=== PATIENT | male | born 2000 | race Caucasian/White ===

== ENCOUNTER 2024-03-05 13:20 | Observation (INO) | payer BC, OTHER ==
--- NOTE | 2024-03-05 13:23 | ED ---
Abdominal Pain HPI - General Source: patient, RN notes reviewed Mode of arrival: ambulatory Limitations: no limitations - History of Present Illness MD Complaint: abdominal pain <Li Farah - Last Filed: 03/05/24 13:22> - General Source: RN notes reviewed <Jyoti Ortiz - Last Filed: 03/05/24 19:13> <Oksana Kunz - Last Filed: 03/05/24 20:19> - General Chief Complaint: Abdominal Pain Stated Complaint: abd pain Time Seen by Provider: 03/05/24 13:22 - History of Present Illness Initial Comments: Quick Note: This is a 24-year-old male who presents to the emergency department for abdominal pain. Pain is described as diffuse. States that it began last night. Last bowel movement was yesterday. Denies any nausea or vomiting. Pain is improved today compared with last night. (Li Farah) 24-year-old male with no significant past medical history presenting to the ER for chief complaint of abdominal pain x 1 day. Reports this pain began last night after he had stirfry for dinner. Reports he ran to the bathroom and had an episode of vomiting. He describes the pain as in the middle of his stomach and feels like "gas is expanding in his stomach". He reports he has not had any episodes of vomiting today however the pain worsened in severity to a 10 out of 10 before arriving at the ER. States since being in the ER, pain has decreased to about a 4. Denies any current nausea. Denies any previous abdominal surgeries. Last bowel movement was yesterday and was normal. Denies chest pain, shortness of breath, fever, chills (Jyoti Ortiz) - Related Data Home Medications Medication Instructions Recorded Confirmed No Known Home Medications 06/13/15 03/05/24 Allergies Allergy/AdvReac Type Severity Reaction Status Date / Time No Known Allergies Allergy Verified 03/05/24 16:04 Review of Systems ROS Other: All systems not noted in ROS Statement are negative. <Li Farah - Last Filed: 03/05/24 13:22> ROS Other: All systems not noted in ROS Statement are negative. <Jyoti Ortiz - Last Filed: 03/05/24 19:13> ROS Other: All systems not noted in ROS Statement are negative. <Oksana Kunz - Last Filed: 03/05/24 20:19> ROS Statement: Those systems with pertinent positive or pertinent negative responses have been documented in the HPI. Past Medical History Past Medical History: No Reported History History of Any Multi-Drug Resistant Organisms: None Reported Past Surgical History: No Surgical Hx Reported Past Psychological History: No Psychological Hx Reported Past Alcohol Use History: None Reported Past Drug Use History: None Reported <Li Farah - Last Filed: 03/05/24 13:22> General Exam <Li Farah - Last Filed: 03/05/24 13:22> General appearance: alert, in no apparent distress Head exam: Present: atraumatic, normocephalic, normal inspection Eye exam: Present: normal appearance, PERRL, EOMI. Absent: scleral icterus, conjunctival injection, periorbital swelling ENT exam: Present: normal exam, mucous membranes moist Neck exam: Present: normal inspection. Absent: tenderness, meningismus, lymphadenopathy Respiratory exam: Present: normal lung sounds bilaterally. Absent: respiratory distress, wheezes, rales, rhonchi, stridor Cardiovascular Exam: Present: regular rate, normal rhythm, normal heart sounds. Absent: systolic murmur, diastolic murmur, rubs, gallop, clicks GI/Abdominal exam: Present: soft, normal bowel sounds. Absent: distended, tenderness, guarding, rebound, rigid <Jyoti Ortiz - Last Filed: 03/05/24 19:13> - General Exam Comments Initial Comments: Visual Physical Exam Vital signs reviewed General: Well-appearing, nontoxic, no acute distress. Head: Normocephalic, atraumatic Eyes: PERRLA, EOMI ENT: Airway patent Chest: Nonlabored breathing Skin: No visual rash, normal skin tone Neuro: Alert and oriented 3 Musculoskeletal: No gross abnormalities (Li Farah) Course Vital Signs 03/05/24 03/05/24 13:47 19:47 Temperature 98.1 F 98.0 F Pulse Rate 64 82 Respiratory 16 18 Rate Blood Pressure 149/83 143/78 O2 Sat by Pulse 98 99 Oximetry Medical Decision Making <Li Farah - Last Filed: 03/05/24 13:22> - Lab Data Result diagrams: 03/05/24 15:55 03/05/24 15:55 <AngelJyoti - Last Filed: 03/05/24 19:13> - Lab Data Result diagrams: 03/05/24 15:55 03/05/24 15:55 <Oksana Kunz - Last Filed: 03/05/24 20:19> - Medical Decision Making I performed the QuickNote portion of this chart. Signed Li Farah PA-C. (Li Farah) Was pt. sent in by a medical professional or institution (TREY Roach, HEALTHCARE CONSULTING MANAGER, urgent care, hospital, or fci...) When possible be specific @ -[No] Did you speak to anyone other than the patient for history (EMS, parent, family, police, friend...)? What history was obtained from this source @ -[No] Did you review nursing and triage notes (agree or disagree)? Why? @ -[I reviewed and agree with nursing and triage notes] Were old charts reviewed (outside hosp., previous admission, EMS record, old EKG, old radiological studies, urgent care reports/EKG's, fci records)? Report findings @ -[No old charts were reviewed] Differential Diagnosis (chest pain, altered mental status, abdominal pain women, abdominal pain men, vaginal bleeding, weakness, fever, dyspnea, syncope, heada jimmie, dizziness, GI bleed, back pain, seizure, CVA, palpatations, mental health, musculoskeletal)? @ -Differential Abdominal Pain Men: Appendicitis, cholecystitis, diverticulosis, ischemic bowel, pancreatitis, hepatitis, UTI, gastroenteritis, AAA, incarcerated hernia, bowel obstruction, constipation, inflammatory bowel, hepatitis, peptic ulcer disease, splenic infarction, perforated viscus, testicular torsion, this is not meant to be an all-inclusive list EKG interpreted by me (3pts min.). @ -None X-rays interpreted by me (1pt min.). @ -[None done] CT interpreted by me (1pt min.). @ -CT of abdomen/pelvis pending at time of signout. U/S interpreted by me (1pt. min.). @ -[None done] What testing was considered but not performed or refused? (CT, X-rays, U/S, labs)? Why? @ -[None] What meds were considered but not given or refused? Why? @ -None Did you discuss the management of the patient with other professionals (professionals i.e. , PA, HEALTHCARE CONSULTING MANAGER, lab, RT, psych nurse, social sciences chair, automatic tire tester, teacher, staff submarine warfare officer, case repairer)? Give summary @ -[No] Was smoking cessation discussed for >3mins.? @ -[No] Was critical care preformed (if so, how long)? @ -[No] Were there social determinants of health that impacted care today? How? (Homelessness, low income, unemployed, alcoholism, drug addiction, transportation, low edu. Level, literacy, decrease access to med. care, custodial, rehab)? @ -[No] Was there de-escalation of care discussed even if they declined (Discuss DNR or withdrawal of care, Hospice)? DNR status @ -[No] What co-morbidities impacted this encounter? (DM, HTN, Smoking, COPD, CAD, Cancer, CVA, ARF, Chemo, Hep., AIDS, mental health diagnosis, sleep apnea, morbid obesity)? @ -[None] Was patient admitted / discharged? Hospital course, mention meds given and route, prescriptions, significant lab abnormalities, going to OR and other pertinent info. @ -Patient was seen and evaluated for abdominal pain x 1 day with 1 episode of vomiting. Patient is afebrile, no tachycardia. Physical examination is unremarkable, abdomen is nontender upon palpation. Patient is given 2 L of IV fluids. Lab work including CBC, CMP, lactic acid, lipase unremarkable for white blood cell count of 19.5 with left shift, as well as CO2 of 17. Urine remarkable for 3+ ketones and trace protein. CT of abdomen/pelvis performed due to white count of 19.5 and pending at time of signout to Oksana Kunz PA-C at 7:10 PM. (Jyoti Ortiz) - Lab Data Lab Results 03/05/24 03/05/24 03/05/24 Range/Units 15:55 15:55 15:55 WBC 19.5 H (3.8-10.6) k/uL RBC 5.79 (4.30-5.90) m/uL Hgb 17.2 (13.0-17.5) gm/dL Hct 51.4 (39.0-53.0) % MCV 88.9 (80.0-100.0) fL MCH 29.7 (25.0-35.0) pg MCHC 33.4 (31.0-37.0) g/dL RDW 12.6 (11.5-15.5) % Plt Count 278 (150-450) k/uL MPV 9.4 Neutrophils % 74 % Lymphocytes % 17 % Monocytes % 5 % Eosinophils % 1 % Basophils % 1 % Neutrophils # 14.5 H (1.3-7.7) k/uL Lymphocytes # 3.4 (1.0-4.8) k/uL Monocytes # 1.0 (0-1.0) k/uL Eosinophils # 0.2 (0-0.7) k/uL Basophils # 0.1 (0-0.2) k/uL Sodium 141 (137-145) mmol/L Potassium 3.8 (3.5-5.1) mmol/L Chloride 109 H (98-107) mmol/L Carbon Dioxide 17 L (22-30) mmol/L Anion Gap 15 mmol/L BUN 10 (9-20) mg/dL Creatinine 0.99 (0.66-1.25) mg/dL Est GFR (CKD-EPI)AfAm >90 (>60 ml/min/1.73 sqM) Est GFR (CKD-EPI)NonAf >90 (>60 ml/min/1.73 sqM) Glucose 87 (74-99) mg/dL Plasma Lactic Acid Ezekiel (0.7-2.0) mmol/L Calcium 9.8 (8.4-10.2) mg/dL Total Bilirubin 0.9 (0.2-1.3) mg/dL AST 23 (17-59) U/L ALT 23 (4-49) U/L Alkaline Phosphatase 89 (38-126) U/L Total Protein 8.1 (6.3-8.2) g/dL Albumin 5.2 H (3.5-5.0) g/dL Amylase 49 (30-110) U/L Lipase 42 (23-300) U/L Urine Color Yellow Urine Appearance Clear (Clear) Urine pH 6.5 (5.0-8.0) Ur Specific [place] 1.019 (1.001-1.035) Urine Protein Trace H (Negative) Urine Glucose (UA) Negative (Negative) Urine Ketones 3+ H (Negative) Urine Blood Negative (Negative) Urine Nitrite Negative (Negative) Urine Bilirubin Negative (Negative) Urine Urobilinogen <2.0 (<2.0) mg/dL Ur Leukocyte Esterase Negative (Negative) 03/05/24 Range/Units 15:55 WBC (3.8-10.6) k/uL RBC (4.30-5.90) m/uL Hgb (13.0-17.5) gm/dL Hct (39.0-53.0) % MCV (80.0-100.0) fL MCH (25.0-35.0) pg MCHC (31.0-37.0) g/dL RDW (11.5-15.5) % Plt Count (150-450) k/uL MPV Neutrophils % % Lymphocytes % % Monocytes % % Eosinophils % % Basophils % % Neutrophils # (1.3-7.7) k/uL Lymphocytes # (1.0-4.8) k/uL Monocytes # (0-1.0) k/uL Eosinophils # (0-0.7) k/uL Basophils # (0-0.2) k/uL Sodium (137-145) mmol/L Potassium (3.5-5.1) mmol/L Chloride (98-107) mmol/L Carbon Dioxide (22-30) mmol/L Anion Gap mmol/L BUN (9-20) mg/dL Creatinine (0.66-1.25) mg/dL Est GFR (CKD-EPI)AfAm (>60 ml/min/1.73 sqM) Est GFR (CKD-EPI)NonAf (>60 ml/min/1.73 sqM) Glucose (74-99) mg/dL Plasma Lactic Acid Ezekiel 1.3 (0.7-2.0) mmol/L Calcium (8.4-10.2) mg/dL Total Bilirubin (0.2-1.3) mg/dL AST (17-59) U/L ALT (4-49) U/L Alkaline Phosphatase (38-126) U/L Total Protein (6.3-8.2) g/dL Albumin (3.5-5.0) g/dL Amylase (30-110) U/L Lipase (23-300) U/L Urine Color Urine Appearance (Clear) Urine pH (5.0-8.0) Ur Specific [place] (1.001-1.035) Urine Protein (Negative) Urine Glucose (UA) (Negative) Urine Ketones (Negative) Urine Blood (Negative) Urine Nitrite (Negative) Urine Bilirubin (Negative) Urine Urobilinogen (<2.0) mg/dL Ur Leukocyte Esterase (Negative) Disposition <Li Farah - Last Filed: 03/05/24 13:22> <Jyoti Ortiz - Last Filed: 03/05/24 19:13> Is patient prescribed a controlled substance at d/c from ED?: No Decision to Admit Reason: Admit from EC Decision Date: 03/05/24 Decision Time: 20:18 <Oksana Kunz - Last Filed: 03/05/24 20:19> Clinical Impression: Appendicitis Disposition: ADMITTED IP TO THIS HOSP Condition: Good Referrals: None,Stated [Primary Care Provider] - 1-2 days
[2024-03-05 16:12] LABS: Appearance,Urine Clear (Clear); Bilirubin,Urine Negative (Negative); Blood,Urine Negative (Negative); Color,Urine Yellow; Glucose,Urine (UA) Negative (Negative); Ketones,Urine 3+ (Negative); Leukocyte Esterase,Urine Negative (Negative); Nitrite,Urine Negative (Negative); PH, Urine 6.5 (5.0-8.0); Protein,Urine Trace (Negative); Specific Gravity,Urine 1.019 (1.001-1.035); Urobilinogen,Urine <2.0 mg/dL (<2.0)
[2024-03-05 16:22] LABS: Basophils # (A) 0.1 k/uL (0-0.2); Basophils % (A) 1 %; Eosinophils # (A) 0.2 k/uL (0-0.7); Eosinophils % (A) 1 %; HCT 51.4 % (39.0-53.0); HGB 17.2 gm/dL (13.0-17.5); Lymphocytes # (A) 3.4 k/uL (1.0-4.8); Lymphocytes % (A) 17 %; MCH 29.7 pg (25.0-35.0); MCHC 33.4 g/dL (31.0-37.0); MCV 88.9 fL (80.0-100.0); Mean Platelet Volume 9.4; Monocytes % (A) 5 %; Neutrophils # (A) 14.5 k/uL (1.3-7.7); Neutrophils % (A) 74 %; Platelet Count 278 k/uL (150-450); RBC 5.79 m/uL (4.30-5.90); RDW 12.6 % (11.5-15.5); WBC 19.5 k/uL (3.8-10.6)
[2024-03-05] MEDS: SODIUM CHLORIDE 0.9% 1,000 ML IV STA ×2 (16:45→19:31)
[2024-03-05 16:58] LABS: ALT 23 U/L (4-49); AST 23 U/L (17-59); African American GFR (CKD) >90 (>60 ml/min/1.73 sqM); Albumin 5.2 g/dL (3.5-5.0); Alkaline Phosphatase 89 U/L (38-126); Amylase 49 U/L (30-110); Anion Gap 15 mmol/L; Blood Urea Nitrogen 10 mg/dL (9-20); Calcium 9.8 mg/dL (8.4-10.2); Carbon Dioxide 17 mmol/L (22-30); Chloride 109 mmol/L (98-107); Glucose 87 mg/dL (74-99); Lipase 42 U/L (23-300); Non-African American GFR(CKD) >90 (>60 ml/min/1.73 sqM); Potassium 3.8 mmol/L (3.5-5.1); Sodium 141 mmol/L (137-145); Total Bilirubin 0.9 mg/dL (0.2-1.3); Total Protein 8.1 g/dL (6.3-8.2)
--- NOTE | 2024-03-05 19:57 | CT ---
EXAMINATION TYPE: CT abdomen pelvis w con DATE OF EXAM: 03/05/2024 COMPARISON: None HISTORY: generalized abd pain CT DLP: 1484 mGycm Automated exposure control for dose reduction was used. CONTRAST: CT scan of the abdomen pelvis is performed with IV Contrast, patient injected with 100 ml mL of Isovu e 300. FINDINGS- LUNG BASES- No significant abnormality is appreciated. LIVER/GB- area of low attenuation near the falciform ligament within the liver likely represents an area of focal fatty infiltration. No gallstones. PANCREAS- No gross abnormality is seen. SPLEEN- No gross abnormality is seen. ADRENALS- No gross abnormality is seen. KIDNEYS/BLADDER- no hydronephrosis nephrolithiasis or renal mass. BOWEL- no evidence of obstruction. The appendix is of normal caliber distally but is dilated proxima lly and there is mild induration of the fat best seen on coronal image 57 and axial image 56. Report discussed with referring clinician 7:53 PM 03/05/2024 LYMPH NODES- No greater than 1cm abdominal or pelvic lymph nodes are appreciated. OSSEOUS STRUCTURES- No significant abnormality is seen. OTHER- aorta normal caliber. IMPRESSION- 1. Appendix is dilated proximally and there is mild induration of the fat. Early appendicitis in the differential diagnosis.
[2024-03-05] MEDS ORDERED: IBUPROFEN 400 MG TAB PO PRN (20:23)
[2024-03-05] MEDS ORDERED: NALOXONE 0.4 MG/ML 1 ML VIAL IV PRN (20:23)
[2024-03-05] MEDS ORDERED: ACETAMINOPHEN TAB 325 MG TAB PO PRN (20:23)
[2024-03-06 07:57] LABS: ALT 18 U/L (4-49); AST 17 U/L (17-59); African American GFR (CKD) >90 (>60 ml/min/1.73 sqM); Albumin/Globulin Ratio 1.6; Alkaline Phosphatase 68 U/L (38-126); Anion Gap 10 mmol/L; Blood Urea Nitrogen 7 mg/dL (9-20); Carbon Dioxide 17 mmol/L (22-30); Chloride 115 mmol/L (98-107); Globulin 2.5 g/dL; Glucose 82 mg/dL (74-99); Non-African American GFR(CKD) >90 (>60 ml/min/1.73 sqM); Potassium 4.1 mmol/L (3.5-5.1); Sodium 142 mmol/L (137-145); Total Bilirubin 0.7 mg/dL (0.2-1.3); Total Protein 6.5 g/dL (6.3-8.2)
--- NOTE | 2024-03-06 09:01 | P.GSHP ---
History of Present Illness H&P Date: 03/06/24 24-year-old male with no significant past medical history presenting to the ER for chief complaint of abdominal pain x 1 day. Reports this pain began last night after he had stirfry for dinner. Reports he ran to the bathroom and had an episode of vomiting. He describes the pain as in the middle of his stomach and feels like "gas is expanding in his stomach". He reports he has not had any episodes of vomiting today however the pain worsened in severity to a 10 out of 10 before arriving at the ER. States since being in the ER, pain has decreased to about a 4. Denies any current nausea. Denies any previous abdominal surgeries. Last bowel movement was yesterday and was normal. Denies chest pain, shortness of breath, fever, chills Review of Systems ROS Other: All systems not noted in ROS Statement are negative. ROS Other: All systems not noted in ROS Statement are negative. ROS Other: All systems not noted in ROS Statement are negative. ROS Statement: Those systems with pertinent positive or pertinent negative responses have been documented in the HPI. Past Medical History Past Medical History: No Reported History History of Any Multi-Drug Resistant Organisms: None Reported Past Surgical History: No Surgical Hx Reported Past Psychological History: No Psychological Hx Reported Past Alcohol Use History: None Reported Past Drug Use History: None Reported General Exam General appearance: alert, in no apparent distress Head exam: Present: atraumatic, normocephalic, normal inspection Eye exam: Present: normal appearance, PERRL, EOMI. Absent: scleral icterus, conjunctival injection, periorbital swelling ENT exam: Present: normal exam, mucous membranes moist Neck exam: Present: normal inspection. Absent: tenderness, meningismus, lymphadenopathy Respiratory exam: Present: normal lung sounds bilaterally. Absent: respiratory distress, wheezes, rales, rhonchi, stridor Cardiovascular Exam: Present: regular rate, normal rhythm, normal heart sounds. Absent: systolic murmur, diastolic murmur, rubs, gallop, clicks GI/Abdominal exam: Present: soft, normal bowel sounds. Absent: distended, tenderness, guarding, rebound, rigid 24 year old male with acute appendicitis on CT-AP - OR for Laparoscopic Appendectomy Past Medical History Past Medical History: No Reported History History of Any Multi-Drug Resistant Organisms: None Reported Past Surgical History: No Surgical Hx Reported Past Anesthesia/Blood Transfusion Reactions: No Reported Reaction Past Psychological History: No Psychological Hx Reported Smoking Status: Current some day smoker, Vaper Past Alcohol Use History: None Reported Past Drug Use History: None Reported Medications and Allergies Home Medications Medication Instructions Recorded Confirmed Type No Known Home Medications 06/13/15 03/05/24 History Allergies Allergy/AdvReac Type Severity Reaction Status Date / Time No Known Allergies Allergy Verified 03/05/24 16:04 Surgical - Exam Vital Signs Temp Pulse Resp BP Pulse Ox 98.1 F 64 16 149/83 98 03/05/24 13:47 03/05/24 13:47 03/05/24 13:47 03/05/24 13:47 03/05/24 13:47 Results - Labs 03/05/24 15:55 03/06/24 06:37 Abnormal Lab Results - Last 24 Hours (Table) 03/05/24 03/05/24 03/05/24 Range/Units 15:55 15:55 15:55 WBC 19.5 H (3.8-10.6) k/uL Neutrophils # 14.5 H (1.3-7.7) k/uL Chloride 109 H (98-107) mmol/L Carbon Dioxide 17 L (22-30) mmol/L BUN (9-20) mg/dL Albumin 5.2 H (3.5-5.0) g/dL Urine Protein Trace H (Negative) Urine Ketones 3+ H (Negative) 03/06/24 Range/Units 06:37 WBC (3.8-10.6) k/uL Neutrophils # (1.3-7.7) k/uL Chloride 115 H (98-107) mmol/L Carbon Dioxide 17 L (22-30) mmol/L BUN 7 L (9-20) mg/dL Albumin (3.5-5.0) g/dL Urine Protein (Negative) Urine Ketones (Negative) Diabetes panel 03/05/24 03/06/24 Range/Units 15:55 06:37 Sodium 141 142 (137-145) mmol/L Potassium 3.8 4.1 (3.5-5.1) mmol/L Chloride 109 H 115 H (98-107) mmol/L Carbon Dioxide 17 L 17 L (22-30) mmol/L BUN 10 7 L (9-20) mg/dL Creatinine 0.99 0.82 (0.66-1.25) mg/dL Glucose 87 82 (74-99) mg/dL Calcium 9.8 9.0 (8.4-10.2) mg/dL AST 23 17 (17-59) U/L ALT 23 18 (4-49) U/L Alkaline Phosphatase 89 68 (38-126) U/L Total Protein 8.1 6.5 (6.3-8.2) g/dL Albumin 5.2 H 4.0 (3.5-5.0) g/dL Calcium panel 03/05/24 03/06/24 Range/Units 15:55 06:37 Calcium 9.8 9.0 (8.4-10.2) mg/dL Albumin 5.2 H 4.0 (3.5-5.0) g/dL Pituitary panel 03/05/24 03/06/24 Range/Units 15:55 06:37 Sodium 141 142 (137-145) mmol/L Potassium 3.8 4.1 (3.5-5.1) mmol/L Chloride 109 H 115 H (98-107) mmol/L Carbon Dioxide 17 L 17 L (22-30) mmol/L BUN 10 7 L (9-20) mg/dL Creatinine 0.99 0.82 (0.66-1.25) mg/dL Glucose 87 82 (74-99) mg/dL Calcium 9.8 9.0 (8.4-10.2) mg/dL Adrenal panel 03/05/24 03/06/24 Range/Units 15:55 06:37 Sodium 141 142 (137-145) mmol/L Potassium 3.8 4.1 (3.5-5.1) mmol/L Chloride 109 H 115 H (98-107) mmol/L Carbon Dioxide 17 L 17 L (22-30) mmol/L BUN 10 7 L (9-20) mg/dL Creatinine 0.99 0.82 (0.66-1.25) mg/dL Glucose 87 82 (74-99) mg/dL Calcium 9.8 9.0 (8.4-10.2) mg/dL Total Bilirubin 0.9 0.7 (0.2-1.3) mg/dL AST 23 17 (17-59) U/L ALT 23 18 (4-49) U/L Alkaline Phosphatase 89 68 (38-126) U/L Total Protein 8.1 6.5 (6.3-8.2) g/dL Albumin 5.2 H 4.0 (3.5-5.0) g/dL
[2024-03-06 10:31] LABS: Basophils # (A) 0.12 X 10*3/uL (0.00-0.10); Basophils % (A) 0.7 %; Eosinophils % (A) 3.1 %; HCT 46.7 % (39.6-50.0); HGB 15.4 g/dL (13.0-17.0); Lymphocytes % (A) 23.9 %; MCH 29.8 pg (27.0-32.0); MCV 90.5 FL (80.0-97.0); Mean Platelet Volume 11.4 FL (9.5-12.2); Monocytes # (A) 1.19 X 10*3/uL (0.20-1.00); Monocytes % (A) 7.3 %; NRBC Per 100 WBC 0 X 10*3/uL (0.00-0.01); Neutrophils # (A) 10.58 X 10*3/uL (1.80-7.70); Neutrophils % (A) 64.6 %; Platelet Count 233 X 10*3/uL (140-440); RBC 5.16 X 10*6/uL (4.40-5.60); RDW 12.7 % (11.5-14.5); WBC 16.35 X 10*3/uL (4.50-10.00)
[2024-03-07] MEDS: IV FLUID CONTINUATION 1,000 ML IV ONE (08:02)
[2024-03-07] MEDS: LACTATED RINGERS 1,000 ML BAG IV STA (08:03)
[2024-03-07] MEDS ORDERED: ePHEDrine 50 MG/ML 1 ML VIAL ONE (08:10)
[2024-03-07] MEDS ORDERED: MIDAZOLAM 2 MG/2 ML VIAL ONE (08:10)
[2024-03-07] MEDS ORDERED: SUCCINYLCHOLINE CHLORIDE 200 MG/10 ML VIAL IV ONE (08:10)
[2024-03-07] MEDS ORDERED: LIDOCAINE 1% INJ 10MG/ML (20 ML MDV) ONE (08:10)
[2024-03-07] MEDS ORDERED: ONDANSETRON 4 MG/2 ML VIAL ONE (08:10)
[2024-03-07] MEDS ORDERED: NEOSTIGMINE 1 MG/ML 10 ML VIAL ONE (08:10)
[2024-03-07] MEDS ORDERED: fentaNYL (PF) 50 MCG/ML 2 ML AMP ONE (08:10)
[2024-03-07] MEDS ORDERED: DEXAMETHASONE SOD PHOSPHATE 4 MG/ML 1 ML VIAL ONE (08:10)
[2024-03-07] MEDS ORDERED: GLYCOPYRROLATE 0.2 MG/ML 2 ML VIAL ONE (08:10)
[2024-03-07] MEDS ORDERED: KETOROLAC 15 MG/ML 1 ML VIAL ONE (08:10)
[2024-03-07] MEDS ORDERED: PROPOFOL 10 MG/ML 20 ML VIAL IV ONE (08:10)
[2024-03-07] MEDS ORDERED: ROCURONIUM 10 MG/ML (5 ML VIAL) IV ONE (08:10)
[2024-03-07] MEDS: LIDOCAINE 1%-EPI 1:100,000 20 ML VIAL SQ ONE (08:58)
[2024-03-07 09:36] VITALS: RESP 16
--- NOTE | 2024-03-07 10:28 | P.PN ---
Progress Note - Text Progress Note Date: 03/07/24 Laparoscopic Appendectomy performed. Patient stable in PACU. Formal operative note to follow
[2024-03-07 10:56] LABS: BUN/Creat Ratio 9.78 Ratio (12.00-20.00); Blood Urea Nitrogen 8.8 mg/dL (9.0-27.0); Glucose 93 mg/dL (70-110)
[2024-03-07 10:57] LABS: Carbon Dioxide 16.4 mmol/L (21.6-31.8); Chloride 110 mmol/L (96-109); Potassium 4.2 mmol/L (3.5-5.5); Sodium 141 mmol/L (135-145)
[2024-03-07 10:58] LABS: Basophils # (A) 0.09 X 10*3/uL (0.00-0.10); Eosinophils # (A) 0.58 X 10*3/uL (0.04-0.35); Eosinophils % (A) 6.2 %; HCT 46.2 % (39.6-50.0); HGB 15.4 g/dL (13.0-17.0); Lymphocytes # (A) 3.79 X 10*3/uL (0.90-5.00); Lymphocytes % (A) 40.3 %; MCHC 33.3 g/dL (32.0-37.0); MCV 90.1 FL (80.0-97.0); Monocytes % (A) 7.4 %; NRBC Per 100 WBC 0 X 10*3/uL (0.00-0.01); Neutrophils % (A) 44.6 %; Platelet Count 247 X 10*3/uL (140-440); RBC 5.13 X 10*6/uL (4.40-5.60); RDW 12.4 % (11.5-14.5); WBC 9.41 X 10*3/uL (4.50-10.00)
[2024-03-07] MEDS: HYDROmorphone 0.5 MG/0.5 ML SYRINGE IVP PRN (14:36)
[2024-03-07 14:55] VITALS: BP 148/85; PULSE 68; TEMP 98.5
== END 2024-03-07 19:10 | disposition home or self-care (01) ==
LOC: EC 13:20 → 6NMEDSUR 20:32
PROVIDERS: ADMIT Surgery Plastic and Reconstructive Surgery; ATTEND Surgery Plastic and Reconstructive Surgery
DX: K35.80 Unspecified acute appendicitis (principal); F17.219 Nicotine dependence, cigarettes, with unspecified nicotine-induced disorders
CPT/HCPCS: 96360; 96361; 99285; 36415; 80053 ×2; 80048; 82150; 83605; 83690; 85025 ×3; 81003; 87040; 74177; 44970; G0378 ×3; J2250; J0330; J1100; J2710; J2405; J0694 ×3; J2001; J3010; J1885; J2704; J1170; Q9967; 88304